=== PATIENT | female | born 1980 | race Caucasian/White ===

== ENCOUNTER 2023-12-02 12:42 | Emergency (ER) | payer BC, SELFPAY ==
[2023-12-02 12:49] VITALS: BP 176/104
[2023-12-02 13:07] LABS: % Basophils 0.6 % (0-2); % Eosinophils 3.2 % (0-6); % Immature Granulocytes 0.4 % (0-0.5); % Lymphocytes 21.9 % (20.5-51.1); % Neutrophils 68.9 % (42.2-75.2); Absolute Basophils 0.1 10^3/uL (0-0.2); Absolute Eosinophils 0.3 10^3/uL (0-0.7); Absolute Lymphocytes 1.9 10^3/uL (1.2-3.4); Absolute Monocytes 0.4 10^3/uL (0.1-0.6); Absolute Neutrophils 5.9 10^3/uL (1.4-6.5); Hematocrit 40.9 % (37.0-47.0); Hemoglobin 13.8 g/dL (12.0-16.0); Mean Corp Hgb Conc. 33.7 g/dL (33.0-37.0); Mean Corpuscular Hgb 30.5 pg (27.0-31.0); Mean Corpuscular Volume 90.5 fL (81.0-99.0); Mean Platelet Volume 10.4 fL (7.4-10.4); Nucleated Red Blood Cells % 0 %; Platelet Count 338 10^3/uL (130-400); Red Blood Cell Count 4.52 10^6/uL (4.20-5.40); Red Cell Dist. Width 13.3 % (11.5-14.5); White Blood Cell Count 8.6 10^3/uL (4.8-10.8)
[2023-12-02 13:23] LABS: ALT (SGPT) 28 U/L (0-35); AST (SGOT) 34 U/L (14-36); Albumin 4.8 g/dl (3.5-5.0); Alkaline Phosphatase 64 U/L (38-126); Blood Urea Nitrogen 15 mg/dl (7-17); Calcium 9.3 mg/dl (8.4-10.2); Carbon Dioxide 24 mmol/L (22-30); Chloride 106 mmol/L (98-107); Glucose 103 mg/dl (70-99); Potassium 4.3 mmol/L (3.5-5.1); Sodium 137 mmol/L (135-145); Total Bilirubin 0.8 mg/dl (0.2-1.3); Total Protein 7.9 g/dl (6.3-8.2); eGFR > 60.00
[2023-12-02 14:12] VITALS: BP 113/76
[2023-12-02] MEDS: BACTRIM DS 800 MG/160 MG 1 TABLET PO (14:50)
--- NOTE | 2023-12-02 19:53 | ED.SKININJ ---
HPI-Injury
General
Chief Complaint: Skin Problem
Source: patient
Exam Limitations: none
Time Seen by Provider: 12/02/23 14:08
Nursing documentation reviewed up to this point in time: agreed with
Travel History
Have you had any contact with someone who has COVID-19?: No
Do you have any symptoms of coronavirus? Fever > 100 degrees, chills, cough, shortness of breath, sore throat, loss of taste or smell, muscle aches, or headache?: No
History of Present Illness-Injury
Is this injury a work related problem?: No
Is pt an associate of [facility]?: No
Initial Injury comments:
Patient states she was diagnosed with cellulitis to her left lateral foot yesterday b PCP. Placed on Keflex 500mg bid. She has had 3 doses. Today noticed a purple spot onleft 5th toe. Painful. Brought self to ED for eval. No fever or chills.
Past History
Past History
ED Past Medical History: None
ED Past Surgical History: Cholecystectomy and Tonsilectomy
Social History
Tobacco: Non-smoker
Alcohol: Occasional
Drug: None
Personal:
Living: with family
Family History
Family History: Hypertension; Negative Early CAD or CAD
Review of Systems
Review of Systems
Allergies reviewed?: Yes
All Other Systems: ROS reviewed and negative except as documented in HPI and ROS
Constitutional: Reports no symptoms
Musculoskeletal: Reports joint pain (Pain left distal 5th toe)
Skin: Reports other (Cellulitis left distal lateral foot. Blister on left dorsal 5th toe.)
Neurological: Reports no symptoms
Psychiatric: Reports no symptoms
Phy Exam
General Physical Exam
General Presentation: well appearing
General age: appears stated age
General Skin: warm and dry
General Habitus: normal
Musculoskeletal Exam
Musculoskeletal Exam: full ROM and neuro vasc intact
Skin Exam
Skin Exam: warm/dry and other (Erythema to left distal dorsal foot. Blister on left dorsal 5th toe. Blister punctured with 27g needle and pus extracted. Culture obtained. WIll increase Keflex to QID, add Bactrim DS bid x 10 days. )
Psychiatric Exam
Psychiatric Exam: normal mood/affect
Course
Orders/Labs/Results
Orders:
Orders
12/02/23 12:58
Complete Blood Count/With Diff Urgent
Comprehensive Metabolic Panel Urgent
12/02/23 14:35
Sulfamethox./Trimethoprim Ds [Bactrim Ds 800 mg/160 mg] 1 tablet PO NOW STA
12/02/23 14:42
Wound Culture [Wound/Abscess/Other Culture] Urgent
SHELL Source: Foot
Specimen Description: Left
Date Specimen was Collected: 12/02/23
Time Specimen was Collected: 14:25
Abnormal Lab Results
12/02/23
12:58
Glucose 103 H mg/dl
(70-99)
12/02/23 12:58
12/02/23 12:58
Vital Signs
Initial and Last Documented VS:
Initial Vital Signs
Temp Pulse Resp BP Pulse Ox
98.1 F 105 18 176/104 97
12/02/23 12:49 12/02/23 12:49 12/02/23 12:49 12/02/23 12:49 12/02/23 12:49
Last Documented Vital Signs
Temp Pulse Resp BP Pulse Ox
98.1 F 85 16 113/76 94
12/02/23 12:49 12/02/23 14:12 12/02/23 14:12 12/02/23 14:12 12/02/23 14:12
*Critical Care Note
Total Time (30-74mins, 75-104mins- exclusive of procedures): Not Applicable
Update Note
Update Note:
Keflex increased to QID, added Bactrim DS bid. Given instructions on s/s to return to ED and she is agreeable to plan.
ED Attending Note
-
Portions of this chart may have been created with voice recognition software.� Occasional wrong word or��sound alike� substitutions may have occurred due to the inherent limitations of voice recognition software.
Discharge Plan
Departure
Patient Disposition: Home (Routine Discharge)
Date of Disposition: 12/02/23
Time of Disposition: 14:35
Patient with high blood pressure during this ER visit?: No
Condition: Good
Covid-19: Not Applicable
Discharge Problem:
Cellulitis of fifth toe
Instructions: Cellulitis (Skin Infection), Adult (DC)
Prescriptions:
New
cephalexin 500 mg capsule
500 mg PO QID Qty: 26 0RF
sulfamethoxazole-trimethoprim [Bactrim DS] 800-160 mg tablet
1 tab PO BID Qty: 20 0RF
hydrocodone-acetaminophen 5-325 mg tablet
1 tab PO Q8H PRN (Reason: Pain) Qty: 10 0RF
No Action
omeprazole magnesium [Prilosec OTC] 20 MG tablet,delayed release (DR/EC)
20 mg PO DAILY
Referrals:
Aura Garrison, [Family Provider] - Follow up in 2-3 days
Activity Restrictions/Additional Instructions:
Warm soaks to foot 4 times daily for 15-20 minutes at a time. return to the emergency department immediately for any changes in/worsening of your symptoms.
Interventions
Interventions:
*Risk Screen - Suicide Last Done: 12/02/23 12:52
*General Assessment Last Done: 12/02/23 12:52
*Neglect/Abuse Screening Last Done: 12/02/23 12:52
ED- Fall Risk Assessment Last Done: 12/02/23 15:02
*ED COVID-19 Vaccine History Last Done: 12/02/23 15:02
*Nursing Disposition Last Done: 12/02/23 15:02
ED-Skin Assessment Last Done: 12/02/23 15:02
Discharge Date and Time
Discharge Date/Time: 12/02/23 15:02
Print Language: [id number]
== END 2023-12-02 15:02 | disposition home or self-care (01) ==
LOC: EMR 12:42
PROVIDERS: Student in an Organized Health Care Education/Training Program; EMERGENCY PHYSICIAN Emergency Medicine; FAMILY PHYSICIAN Family Medicine
DX: L03.032 Cellulitis of left toe (principal)
CPT/HCPCS: 99283; 80053; 85025; 87070; 87077; 87147; 87205

== ENCOUNTER → 2024-04-25 12:50 | Outpatient (REF) | payer BC, SELFPAY | LOC: HWRAD 12:50 | PROVIDERS: ATTENDING PHYSICIAN Nurse Practitioner Obstetrics & Gynecology; FAMILY PHYSICIAN Family Medicine | DX: N93.9 Abnormal uterine and vaginal bleeding, unspecified (principal) | CPT/HCPCS: 76830; 76856 ==

== ENCOUNTER → 2024-07-07 14:06 | Outpatient (REF) | payer BC, SELFPAY | LOC: HWWDC 14:06 | PROVIDERS: ATTENDING PHYSICIAN Nurse Practitioner Obstetrics & Gynecology; FAMILY PHYSICIAN Family Medicine | DX: Z12.31 Encounter for screening mammogram for malignant neoplasm of breast (principal) | CPT/HCPCS: 77063; 77067 ==